=== PATIENT | female | born 1930 | race Caucasian/White ===

== ENCOUNTER 2018-04-05 20:49 | Emergency (ER) | payer MEDICARE, BC ==
--- NOTE | 2018-04-05 22:57 | CT ---
CT OF BRAIN WITHOUT CONTRAST: 04/05/18 HISTORY: Fall, loss of consciousness. Contusion to the right forehead. FINDINGS: There are changes of cortical atrophy and chronic small vessel ischemic disease. No evidence of acute infarct, hemorrhage, midline shift or abnormal extra-axial fluid collections are seen. The ventricul ar size is appropriate and the basilar cisterns patent. The bony calvarium is intact. There is mild m ucosal disease in the right anterior ethmoid air cells. The remainder of the paranasal sinuses and ma stoid air cells are well aerated. There is a scalp contusion in the right frontal region. IMPRESSION: No CT evidence of acute intracranial process. POS: [facility]
--- NOTE | 2018-04-05 22:58 | CT ---
CT CERVICAL SPINE WITH CORONAL AND SAGITTAL REFORMATIONS: 04/05/18 HISTORY: Fall, altered mental status. 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 There is loss of cervical lordosis with mild reversal. There is minimal anterolisthesis of C3 over C4 vertebral bodies. No fracture or dislocation is seen. No facet malalignment is identified. POS: [facility]
== END 2018-04-05 23:30 | disposition home or self-care (01) ==
LOC: ERS 20:49
DX: S00.83XA Contusion of other part of head, initial encounter (principal); F10.129 Alcohol abuse with intoxication, unspecified; I10 Essential (primary) hypertension; W18.30XA Fall on same level, unspecified, initial encounter
CPT/HCPCS: 36415; 36416; 70450; 72125; 80307